=== PATIENT | female | born 1955 | race Caucasian/White ===

== ENCOUNTER → 2017-11-12 | Outpatient (CLI) | payer BC ==
[2017-11-12 13:39] LABS: HEMATOCRIT 43.7 % (37-47); HEMOGLOBIN 14.4 g/dL (12.0-16.0); MEAN PLATELET VOLUME 11.2 fL (7.4-10.4); PLATELET COUNT 228 K/uL (130-400); RED CELL DISTRIBUTION WIDTH SD 46.5 fL (36.4-46.3); WHITE BLOOD COUNT 5.26 K/uL (4.8-10.8)
[2017-11-12 13:49] LABS: BLOOD UREA NITROGEN 27 mg/dl (7-18); CALCIUM 9.4 mg/dl (8.5-10.1); CARBON DIOXIDE 28 mmol/L (21-32); CHOLESTEROL 141 mg/dl (0-200); CREATININE 0.78 mg/dl (0.60-1.20); GLUCOSE 94 mg/dl (70-99); LDL CHOLESTEROL CALCULATED 57 mg/dl; POTASSIUM 4.6 mmol/L (3.5-5.1); SODIUM 139 mmol/L (136-145)
== END | disposition home or self-care (01) ==
LOC: C.LABPBG 08:53
PROVIDERS: ATTEND Family Medicine
DX: Z00.00 Encounter for general adult medical examination without abnormal findings (principal); Z13.220 Encounter for screening for lipoid disorders